=== PATIENT | female | born 1990 | race African-American/Black ===

== ENCOUNTER 2016-12-22 05:44 | Inpatient (IN) ==
[2016-12-22] MEDS ORDERED: CITRIC ACID/SODIUM CITRATE 30 ML UDCUP PO ONE (06:16)
[2016-12-22] MEDS ORDERED: FAMOTIDINE 20 MG/2 ML VIAL IV ONE (06:16)
[2016-12-22] MEDS ORDERED: CLINDAMYCIN INJ 900 MG in PREMIX 1 EACH IV ONE (06:20)
[2016-12-22] MEDS: LACTATED RINGERS 1,000 ML IV SCH ×3 (06:30→15:23)
[2016-12-22 06:39] LABS: Basophils % 0.2 % (0.0-0.8); Eosinophils % 0.2 % (0.00-10.9); Hematocrit 34.1 VOL% (35.7-47.0); Immature Granulocytes % 0.4 %; Immature Granulocytes Absolute 0.04 #; Lymphocytes # 2.3 10*3/uL (1.4-4.0); Lymphocytes % 22.1 % (21.3-54.2); Mean Corpuscular HGB Conc 32.3 GM/DL (32-36); Mean Corpuscular Hemoglobin 23 PG (27-34); Mean Corpuscular Volume 72.1 FL (87-102); Mean Platelet Volume 10.2 FL (9.6-12.0); Monocytes # 0.4 10*3/uL (0.11-0.8); Monocytes % 3.8 % (1.7-12.7); Neutrophils # 7.6 10*3/uL (1.4-7.4); Neutrophils % 73.3 % (38.7-73.9); Platelet Count 269 T/CUMM (130-400); Red Blood Count 4.73 MC/CUMM (3.8-5.5); Red Cell Distribution Width 15.9 % (9.3-17.3); White Blood Count 10.3 T/CUMM (4-12)
[2016-12-22 07:11] LABS: Alanine Aminotransferase 18 U/L (13-56); Albumin 2.4 G/DL (3.4-5.0); Alkaline Phosphatase 135 U/L (45-117); Aspartate Amino Transferase 20 U/L (0-37); Bilirubin,Total < 0.39 MG/DL (0.2-1.0); Blood Urea Nitrogen 8 MG/DL (7-18); Calcium 8.3 MG/DL (8.5-10.1); Glucose 78 MG/DL (74-106); Osmolality,Calculated 273.5 MOS/KG (273-304); Potassium 3.4 MMOL/L (3.5-5.1); Sodium 139 MMOL/L (136-145); Total Protein 6.3 G/DL (6.4-8.3)
[2016-12-22] MEDS ORDERED: OXYTOCIN 10 UNIT/ML VIAL IM ONE (07:18)
[2016-12-22] MEDS ORDERED: OXYTOCIN/LR 20 UNIT/1,000 ML BAG IV ONE (07:18)
[2016-12-22] MEDS ORDERED: OXYTOCIN 30 UNIT in DEXTROSE 5% LACTATED RINGERS 1,000 ML IV ONE (07:18)
[2016-12-22 07:24] LABS: INR 0.9; PT Patient Result 9.3 SECS
[2016-12-22] MEDS ORDERED: OXYTOCIN/LR 30 UNIT/1,000 ML BAG IV ONE (07:42)
--- NOTE | 2016-12-22 09:26 | OB/GYN History & Physical ---
History of Present Illness Chief complaint: In for repeat section due to term preg. History of present illness: Ms. Campbell is a 26 year old female 4 para 3 living 3. Who presented to the labor department for a scheduled repeat section due to previous section 3. Her JAMILAH is 12/29[birth year]2016 for an estimated gestational age of 39 weeks. The patient received her care through the [facility] and she received routine care and her course was uneventful. The risk and benefits of been thoroughly discussed with this patient significant other, plan of care has been discussed with Dr. Tovar and all parties are in agreement with plan of care. The patient has had an uneventful course. labs: She is B+, RPR is nonreactive, hepatitis B negative, HIV negative, rubella is immune, GBS cultures negative. Review of systems is negative with exception of 3 previous sections. Home Medications Medication Instructions Recorded Confirmed Type Vit No.124/Iron/Folic 1 tablet PO DAILY MDD ONE TAB 12/09/16 12/22/16 History [ Vitamin Tablet] Allergies Allergy/AdvReac Type Severity Reaction Status Date / Time Penicillins Allergy Intermediate HIVES Verified 12/21/16 16:53 penicillin G Allergy Swelling Verified 12/21/16 16:53 of Lip/Tongue/Throat 12 point system: reviewed and no additional remarkable complaints except as stated (3 previous sections) Medical,Surgical,& Family Hx - Medical History Psychological: No history of: Anxiety Disorders, ADHD, Behavior Problems, Bipolar Disorder, Depression, Previous Suicide Attempt, Psychiatric/Substance Abuse Tx, Schizophrenia, Violent Behavior, Psychiatric Problems Respiratory: History of: Asthma (as a child) Musculoskeletal: No history of: Amputation - Surgical History Neurologic Surgeries: Patient denies: Neurologic Surgery HEENT Surgeries: Patient denies: Eye Surgery, Tonsilectomy & Adenoidectomy Abdominal Surgeries: Surgical HX of: Cholecystectomy Reproductive Surgeries: Surgical HX of;: Section (x3) Patient denies;: Genitourinary Surgery, Gynecologic Surgery - Family History Family History: Reports;: Family Cancer (bone), Family Hypertension (pt mother and father) Denies;: Family Anesthesia Reaction, Family Diabetes, Family Heart Disease, Family Hematology, Family Psychiatric Problems, Family Stroke, Additional Family History - Social History Smoking Status: Never smoker Frequency of Alcohol Use: None Type of Drug Use: None Marital Status: Single Lives With:: Significant Other Functional capacity: independent ambulation 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 General appearance: no acute distress - Antepartum / Post Antepartum Exam Cervix - Dilatation: Pelvic exam deferred Abdomen obstetrics: Present: bowel sounds normal Uterus exam: Present: enlarged (Gravid) Anus/Rectum: Present: normal perianal skin - Respiratory Respiratory exam: Present: clear to auscultation bilaterally - Cardiovascular Cardiovascular exam: Present: regular rate and rhythm - GI/Abdominal GI/Abdominal exam: Present: normal bowel sounds, soft - Extremities Exam Extremities exam: Present: normal inspection - Neurological Exam Neurological exam: Present: alert, oriented X3 - Psychiatric Psychiatric exam: Present: normal affect, normal mood - Skin Skin exam: Present: normal color, warm Assessment and Plan (1) 39 weeks gestation of Status: Acute Assessment and plan: Admit IV fluids Preop for repeat section per Dr. Tovar Anticipate viable infant Current Visit: Yes (2) Previous section Status: Acute Current Visit: Yes Results - Labs CBC & BMP: 12/22/16 06:32 12/22/16 06:32
[2016-12-22] MEDS ORDERED: PHENYLEPHRINE 1 MG/10 ML SYRINGE IV ONE (11:23)
--- NOTE | 2016-12-22 12:34 | Anesthesia Post-Op ---
Anesthesia Post OP - Post Ansesthetic Evaluation Patient seen in post op: Yes Resp: within normal limits CV: within normal limits Mental: within normal limits Temp: within normal limits [id number]: within normal limits Nausea and Vomiting: within normal limits Pain: within normal limits
[2016-12-22] MEDS ORDERED: fentaNYL 100 MCG/2 ML VIAL ONE (12:37)
[2016-12-22] MEDS ORDERED: MORPHINE 10 MG/10 ML VIAL ONE (12:37)
[2016-12-22] MEDS ORDERED: oxyCODONE/ACETAMINOPHEN 5-325 MG TABLET PO PRN (15:00)
[2016-12-22] MEDS ORDERED: MAGNESIUM HYDROXIDE SUSP 30 ML UDCUP PO PRN (15:01)
[2016-12-22] MEDS ORDERED: SIMETHICONE CHEW 80 MG TABLET PO PRN (15:01)
[2016-12-22] MEDS: IBUPROFEN 800 MG TABLET PO PRN (15:12)
[2016-12-22] MEDS: oxyCODONE/ACETAMINOPHEN 5-325 MG TABLET PO PRN (15:13)
[2016-12-22] MEDS: CLINDAMYCIN INJ 900 MG in PREMIX 1 EACH IV SCH (20:02)
[2016-12-22] MEDS: DOCUSATE SODIUM 100 MG CAPSULE PO SCH (21:34)
[2016-12-22 21:35] LABS: Basophils % 0.2 % (0.0-0.8); Eosinophils % 0.2 % (0.00-10.9); Hematocrit 31.1 VOL% (35.7-47.0); Hemoglobin 10.1 GM/DL (12.0-16.0); Immature Granulocytes % 0.4 %; Immature Granulocytes Absolute 0.05 #; Lymphocytes # 2.4 10*3/uL (1.4-4.0); Lymphocytes % 20.5 % (21.3-54.2); Mean Corpuscular HGB Conc 32.5 GM/DL (32-36); Mean Corpuscular Hemoglobin 23 PG (27-34); Mean Corpuscular Volume 72.2 FL (87-102); Mean Platelet Volume 10.7 FL (9.6-12.0); Monocytes # 0.5 10*3/uL (0.11-0.8); Monocytes % 4.1 % (1.7-12.7); Neutrophils # 8.9 10*3/uL (1.4-7.4); Neutrophils % 74.6 % (38.7-73.9); Platelet Count 216 T/CUMM (130-400); Red Blood Count 4.31 MC/CUMM (3.8-5.5); White Blood Count 11.9 T/CUMM (4-12)
[2016-12-23] MEDS: CLINDAMYCIN INJ 900 MG in PREMIX 1 EACH IV SCH ×2 (04:45→11:58)
[2016-12-23 06:34] LABS: Basophils % 0.1 % (0.0-0.8); Eosinophils # 0.1 10*3/uL (0.0-0.87); Eosinophils % 0.5 % (0.00-10.9); Hematocrit 30.2 VOL% (35.7-47.0); Hemoglobin 9.9 GM/DL (12.0-16.0); Immature Granulocytes % 0.6 %; Immature Granulocytes Absolute 0.06 #; Lymphocytes # 1.5 10*3/uL (1.4-4.0); Lymphocytes % 14.4 % (21.3-54.2); Mean Corpuscular HGB Conc 32.8 GM/DL (32-36); Mean Corpuscular Hemoglobin 23 PG (27-34); Mean Corpuscular Volume 71.4 FL (87-102); Mean Platelet Volume 10.6 FL (9.6-12.0); Monocytes # 0.5 10*3/uL (0.11-0.8); Monocytes % 4.7 % (1.7-12.7); Neutrophils # 8.2 10*3/uL (1.4-7.4); Neutrophils % 79.7 % (38.7-73.9); Platelet Count 210 T/CUMM (130-400); Red Blood Count 4.23 MC/CUMM (3.8-5.5); White Blood Count 10.2 T/CUMM (4-12)
[2016-12-23] MEDS: IBUPROFEN 800 MG TABLET PO PRN ×2 (06:58→17:28)
[2016-12-23] MEDS: oxyCODONE/ACETAMINOPHEN 5-325 MG TABLET PO PRN ×2 (06:59→17:29)
[2016-12-23] MEDS: DOCUSATE SODIUM 100 MG CAPSULE PO SCH ×2 (08:46→21:15)
--- NOTE | 2016-12-23 12:20 | OB/GYN Progress Note ---
Assessment and Plan (1) 39 weeks gestation of Status: Acute Assessment and plan: Admit IV fluids Preop for repeat section per Dr. 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 Bonding well with infant. 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 Vitals: Vital Signs Temp Pulse Resp BP Pulse Ox 12/23/16 12:00 97.1 F L 105 H 20 113/63 97 12/23/16 08:00 97.1 F L 94 H 20 119/69 98 12/23/16 05:00 18 12/23/16 04:00 97.1 F L 92 H 20 105/56 98 12/23/16 03:00 20 12/23/16 01:00 18 12/22/16 23:46 97.1 F L 97 H 20 122/50 98 12/22/16 20:00 97.3 F L 83 20 113/62 98 12/22/16 18:00 88 20 128/74 98 12/22/16 17:00 78 20 124/82 98 12/22/16 16:00 97.0 F L 79 20 125/83 98 12/22/16 15:30 747 H 20 127/84 98 12/22/16 15:00 97.2 F L 87 22 132/76 98 General appearance: no acute distress - Antepartum / Post Post Exam Breast: bilateral: normal Abdomen obstetrics: Present: bowel sounds normal Vagina: Present: normal moisture, discharge Uterus exam: Present: enlarged (ff ml) - Gyencological / Post Surgical Post Surgical Exam Lungs: bilateral: normal Chest: Normal S1, Normal S2 Extremities [employer]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: Present: normal Abdomen obstetrics progress note: Present: normal appearance, soft Incision OB: Present: normal, intact - Respiratory Respiratory exam: Present: clear to auscultation bilaterally - Cardiovascular Cardiovascular exam: Present: regular rate and rhythm - GI/Abdominal GI/Abdominal exam: Present: normal bowel sounds, soft - Extremities Exam Extremities exam: Present: normal inspection - Neurological Exam Neurological exam: Present: alert, oriented X3 - Psychiatric Psychiatric exam: Present: normal affect, normal mood - Skin Skin exam: Present: normal color, warm Results - Labs CBC & BMP: 12/23/16 06:03 12/22/16 06:32
[2016-12-24] MEDS: oxyCODONE/ACETAMINOPHEN 5-325 MG TABLET PO PRN ×3 (01:52→14:51)
[2016-12-24] MEDS: IBUPROFEN 800 MG TABLET PO PRN ×3 (01:53→14:48)
[2016-12-24] MEDS: DOCUSATE SODIUM 100 MG CAPSULE PO SCH (08:09)
[2016-12-24 15:34] VITALS: BP 130/70
--- NOTE | 2017-01-15 03:51 | Discharge Summary ---
DATE OF ADMISSION: 12/22/2016 DATE OF DISCHARGE: 12/24/2016 The patient underwent repeat section. 39 weeks gestation remained in the hospital for two p ostoperative days. Mother and new born was stable. The patient tolerated the hospitalization withou t any complications, ambulated well, multiple bowel movements and no excessive bleeding was noted. I ncision site was then packed at the time of discharge. Postoperative instructions were given and she will be discharged and follow in my office in approximately two weeks.
--- NOTE | 2017-01-15 03:51 | Operative Note ---
DATE: 12/22/2016 PREOPERATIVE DIAGNOSIS: 39 WEEKS REPEAT SECTION. POSTOPERATIVE DIAGNOSIS: SAME. PROCEDURE: LOW TRANSVERSE SECTION. BLOOD LOSS: Less than 300 cc. This patient delivered a viable male with Apgars of 9/9. Three cord vessels were noted. SURGEON: Janis Tovar MD ANESTHESIA: Regional. DESCRIPTION OF PROCEDURE: The patient was taken to the Operating Suite, administration of regional a nesthesia, and placed in supine position. Through a previous Pfannenstiel incision, through the skin and subcutaneous layer through the fascia layer, the rectus abdominis muscle split in the midline, ab dominal peritoneum was entered. Bladder flap was created. A low transverse incision was made. Deliv apolinar of a viable infant without any complications. Cord pH was obtained. Cord blood was obtained. T hree cord vessels were noted. The uterus was injected with intrauterine Pitocin. Incision was then m sahil with #1 Vicryl in a continuous locking manner, second layer imbricated the first layer with #1 Vi cryl, and perineum approximated with 2-0 Vicryl. All laps, sponges, and instruments were accounted f or. Abdominal peritoneum closed with 2-0 Vicryl. Fascia layer approximated with 0 Maxon. Skin was a pproximated with yi. She tolerated the procedure well and was taken to recovery room in stable condition.
== END 2016-12-24 17:00 | disposition home or self-care (01) | DRG 540 ==
LOC: N.LDOUT 05:44 → N.LD 05:47 → N.OB 14:40
PROVIDERS: ADMIT Obstetrics & Gynecology; ATTEND Obstetrics & Gynecology
PROC: LDCSECT (ICD-10-PCS; 2016-12-22 08:00)

== ENCOUNTER 2018-01-26 05:21 | Inpatient (IN) ==
[2018-01-26] MEDS ORDERED: FAMOTIDINE 20 MG/2 ML VIAL IV PRN (05:28)
[2018-01-26] MEDS ORDERED: CITRIC ACID/SODIUM CITRATE 30 ML UDCUP PO PRN (05:28)
[2018-01-26] MEDS ORDERED: LACTATED RINGERS 1,000 ML IV SCH (05:30)
[2018-01-26] MEDS ORDERED: CLINDAMYCIN INJ 900 MG in PREMIX 1 EACH IV PRN (05:32)
[2018-01-26] MEDS ORDERED: OXYTOCIN/LR 20 UNIT/1,000 ML BAG IV PRN (05:32)
[2018-01-26] MEDS ORDERED: OXYTOCIN/LR 30 UNIT/1,000 ML BAG IV PRN (05:32)
[2018-01-26 06:04] LABS: Basophils % 0.2 % (0.0-0.8); Eosinophils % 0.3 % (0.00-10.9); Hematocrit 33.4 VOL% (35.7-47.0); Hemoglobin 10.5 GM/DL (12.0-16.0); Immature Granulocytes % 0.6 %; Immature Granulocytes Absolute 0.06 #; Lymphocytes # 2.2 10*3/uL (1.4-4.0); Lymphocytes % 20.5 % (21.3-54.2); Mean Corpuscular HGB Conc 31.4 GM/DL (32-36); Mean Corpuscular Hemoglobin 22 PG (27-34); Mean Platelet Volume 9.9 FL (9.6-12.0); Monocytes # 0.5 10*3/uL (0.11-0.8); Monocytes % 4.4 % (1.7-12.7); Neutrophils # 7.8 10*3/uL (1.4-7.4); Platelet Count 248 T/CUMM (130-400); Red Blood Count 4.84 MC/CUMM (3.8-5.5); Red Cell Distribution Width 17.1 % (9.3-17.3); White Blood Count 10.5 T/CUMM (4-12)
[2018-01-26 06:15] LABS: Albumin 2.7 G/DL (3.4-5.0); Bilirubin,Total 0.4 MG/DL (0.2-1.0); Calcium 8.9 MG/DL (8.5-10.1); Osmolality,Calculated 269.8 MOS/KG (273-304); Potassium 3.5 MMOL/L (3.5-5.1); Total Protein 7.4 G/DL (6.4-8.3)
[2018-01-26] MEDS ORDERED: OXYTOCIN 10 UNIT/ML VIAL IM ONE (06:40)
[2018-01-26 09:00] LABS: HIV Antigen/Antibody Result Nonreactive (Nonreactive); Hepatitis B Surface Ag Quant < 0.10 Index; Hepatitis B Surface Ag Result Negative (Negative)
[2018-01-26] MEDS ORDERED: MAGNESIUM HYDROXIDE SUSP 30 ML UDCUP PO PRN (10:39)
[2018-01-26] MEDS ORDERED: ACETAMINOPHEN 325 MG TABLET PO PRN (10:39)
[2018-01-26] MEDS ORDERED: ONDANSETRON 4 MG/2 ML VIAL IV PRN (10:39)
[2018-01-26] MEDS ORDERED: SIMETHICONE CHEW 80 MG TABLET PO PRN (10:39)
[2018-01-26] MEDS ORDERED: RHO(D) IMMUNE GLOBULIN 300 MCG SYRINGE IM ONE (10:39)
[2018-01-26] MEDS ORDERED: OXYTOCIN/LR 20 UNIT/1,000 ML BAG IV ONE (10:39)
[2018-01-26] MEDS ORDERED: BUPIVACAINE SPINAL 0.75% 2 ML AMP SPINAL ONE (10:52)
[2018-01-26] MEDS ORDERED: MORPHINE 10 MG/10 ML VIAL ONE (10:52)
[2018-01-26] MEDS ORDERED: MIDAZOLAM 2 MG/2 ML VIAL ONE (10:52)
[2018-01-26] MEDS ORDERED: fentaNYL 100 MCG/2 ML VIAL ONE (10:53)
[2018-01-26] MEDS ORDERED: ePHEDrine 50 MG/ML AMP ONE (10:53)
[2018-01-26] MEDS ORDERED: ONDANSETRON 4 MG/2 ML VIAL ONE (10:53)
[2018-01-26] MEDS ORDERED: PHENYLEPHRINE 1 MG/10 ML SYRINGE IV ONE (10:53)
[2018-01-26] MEDS ORDERED: ceFAZolin 1,000 MG in SYRINGE 1 EACH IV SCH (11:00)
[2018-01-26 14:19] LABS: Apearance,Urine CLEAR (Clear); Bilirubin,Urine Negative (Negative); Blood, Urine Negative (Negative); Glucose,Urine (UA) Negative (Negative); Ketones,Urine 20 mg/dL (Negative); Mucus,Urine Occasional /LPF (Occasional); Nitrite,Urine Negative (Negative); Protein,Urine Negative; RBC,Urine 1 /HPF (0-4); Squamous Epithelial Cell,Urine Occasional /HPF (0-10); Urine Color Yellow (Yellow); Urine Specific Gravity 1.019 (1.001-1.035); WBC,Urine 1 /HPF (0-6)
[2018-01-26] MEDS: CLINDAMYCIN INJ 900 MG in PREMIX 1 EACH IV SCH (17:50)
[2018-01-26 18:05] LABS: Basophils % 0.1 % (0.0-0.8); Eosinophils % 0.3 % (0.00-10.9); Hematocrit 29.2 VOL% (35.7-47.0); Hemoglobin 9.1 GM/DL (12.0-16.0); Immature Granulocytes % 0.8 %; Immature Granulocytes Absolute 0.09 #; Lymphocytes # 1.7 10*3/uL (1.4-4.0); Lymphocytes % 14.9 % (21.3-54.2); Mean Corpuscular HGB Conc 31.2 GM/DL (32-36); Mean Corpuscular Hemoglobin 22 PG (27-34); Mean Corpuscular Volume 70.4 FL (87-102); Mean Platelet Volume 10.1 FL (9.6-12.0); Monocytes # 0.4 10*3/uL (0.11-0.8); Monocytes % 3.1 % (1.7-12.7); Neutrophils # 9.4 10*3/uL (1.4-7.4); Neutrophils % 80.8 % (38.7-73.9); Platelet Count 190 T/CUMM (130-400); Red Blood Count 4.15 MC/CUMM (3.8-5.5); Red Cell Distribution Width 16.9 % (9.3-17.3); White Blood Count 11.6 T/CUMM (4-12)
[2018-01-26] MEDS: LACTATED RINGERS 1,000 ML IV SCH ×2 (20:02→20:07)
[2018-01-26] MEDS: DOCUSATE SODIUM 100 MG CAPSULE PO SCH (21:53)
[2018-01-27] MEDS: CLINDAMYCIN INJ 900 MG in PREMIX 1 EACH IV SCH (01:59)
[2018-01-27] MEDS: LACTATED RINGERS 1,000 ML IV SCH (05:57)
[2018-01-27 06:13] LABS: Basophils % 0.1 % (0.0-0.8); Eosinophils % 0.1 % (0.00-10.9); Hematocrit 32.2 VOL% (35.7-47.0); Hemoglobin 10.2 GM/DL (12.0-16.0); Immature Granulocytes % 0.5 %; Immature Granulocytes Absolute 0.07 #; Lymphocytes # 1.3 10*3/uL (1.4-4.0); Lymphocytes % 8.7 % (21.3-54.2); Mean Corpuscular HGB Conc 31.7 GM/DL (32-36); Mean Corpuscular Hemoglobin 22 PG (27-34); Mean Corpuscular Volume 70.8 FL (87-102); Mean Platelet Volume 10.4 FL (9.6-12.0); Monocytes # 0.4 10*3/uL (0.11-0.8); Monocytes % 2.8 % (1.7-12.7); Neutrophils # 12.7 10*3/uL (1.4-7.4); Neutrophils % 87.8 % (38.7-73.9); Platelet Count 224 T/CUMM (130-400); Red Blood Count 4.55 MC/CUMM (3.8-5.5); Red Cell Distribution Width 17.2 % (9.3-17.3); White Blood Count 14.5 T/CUMM (4-12)
[2018-01-27] MEDS: DOCUSATE SODIUM 100 MG CAPSULE PO SCH ×2 (10:23→20:41)
[2018-01-27] MEDS: SIMETHICONE CHEW 80 MG TABLET PO SCH ×2 (10:23→19:07)
[2018-01-27] MEDS: MAGNESIUM HYDROXIDE SUSP 30 ML UDCUP PO SCH (10:23)
[2018-01-27] MEDS: MULTIVITAMIN (PRENATAL) TABLET PO SCH (10:23)
[2018-01-27] MEDS: METOCLOPRAMIDE 10 MG/2 ML VIAL IV SCH ×3 (10:24→19:20)
[2018-01-27] MEDS: IBUPROFEN 800 MG TABLET PO PRN ×2 (11:59→23:58)
[2018-01-28] MEDS: MAGNESIUM HYDROXIDE SUSP 30 ML UDCUP PO SCH ×2 (00:32→09:53)
[2018-01-28] MEDS: SIMETHICONE CHEW 80 MG TABLET PO SCH ×3 (00:34→09:54)
[2018-01-28 09:20] VITALS: BP 131/79
[2018-01-28] MEDS: MULTIVITAMIN (PRENATAL) TABLET PO SCH (09:53)
[2018-01-28] MEDS: DOCUSATE SODIUM 100 MG CAPSULE PO SCH (09:53)
== END 2018-01-28 12:00 | disposition home or self-care (01) | DRG 540 ==
LOC: N.LDOUT 05:21 → N.LD 05:24 → N.OB 14:53
PROVIDERS: ADMIT Obstetrics & Gynecology; ATTEND Obstetrics & Gynecology